=== PATIENT | female | born 1960 | race African-American/Black ===

== ENCOUNTER 2016-10-31 17:53 | Emergency (ER) | payer BC ==
[~2016-10-31 17:53] MED LIST: CYCL5TAB PO; OXYC5CAP3 PO
[2016-10-31] MEDS ORDERED: IV NORMAL SALINE 1000ML BAG 1,000 ML IV SCH (18:21)
--- NOTE | 2016-10-31 18:21 | PHYS DOC ---
Past Medical History Past Medical History: Other Additional Past Medical Histor: severe acid reflux Past Surgical History: Cholecystectomy, Hysterectomy, Tonsillectomy, Other Additional Past Surgical Histo: breast reduction, R eye sx, bilat knee sx, bilat foot sx Alcohol Use: None Drug Use: None Adult General Chief Complaint Chief Complaint: FLANK PAIN HPI HPI Patient is a 55 year old female who presents with right abdominal and right flank pain. Patient reports for the past 3 days she has had a aching pain in her right flank, right lower quadrant, periumbilical. She also reports nausea and vomiting, chills. Patient has had episodes like this in the past, however this was different in character. She denies fever. She did not take anything for pain prior to coming to emergency department. Review of Systems Review of Systems Constitutional: Chills Eyes: Denies change in visual acuity or eye pain HENT: Denies nasal congestion or sore throat Respiratory: Denies cough or shortness of breath Cardiovascular: Denies chest pain GI: RLQ/periumbilical pain, nausea, vomiting, constipation. Denies bloody stools or diarrhea : Denies dysuria or hematuria Musculoskeletal: R flank pain Integument: Denies rash or skin lesions Neurologic: Denies headache, focal weakness or sensory changes Current Medications Current Medications Current Medications Medications (Trade) Dose Ordered Sig/Magnus Start Time Stop Time Status Last Admin Dose Admin Ceftriaxone Sodium (Rocephin 1gm Ivpb For Omni) 50 ml @ 100 mls/hr 1X ONCE 10/31/16 21:00 10/31/16 21:29 DC 10/31/16 21:17 100 MLS/HR Info (Do NOT chart on this entry -- for MONITORING) 1 each PRN DAILY PRN 10/31/16 19:00 10/31/16 22:40 DC Iohexol (Omnipaque 300 Mg/ml) 75 ml 1X ONCE 10/31/16 19:00 10/31/16 19:01 DC 10/31/16 21:03 75 ML Morphine Sulfate 4 mg 4 mg 1X ONCE 10/31/16 20:30 10/31/16 20:31 DC 10/31/16 20:36 4 MG Sodium Chloride (Iv Sodium Chloride 0.9% 1000ml Bag) 1,000 ml @ 1,000 mls/hr Q1H 10/31/16 18:21 10/31/16 19:20 DC 10/31/16 18:21 1,000 MLS/HR Allergies Allergies Allergies Coded Allergies Type Severity Reaction Last Updated Verified Sulfa (Sulfonamide Antibiotics) Allergy Intermediate 10/31/16 Yes Tetracyclines Allergy Intermediate 07/13/15 Yes acetaminophen Allergy Intermediate Nausea 10/31/16 Yes hydrocodone Allergy Intermediate Nausea 10/31/16 Yes Physical Exam Physical Exam Constitutional: Well developed, well nourished, no acute distress, non-toxic appearance HENT: Normocephalic, atraumatic, bilateral external ears normal Eyes: EOMI, conjunctiva normal, no discharge Neck: Normal range of motion, no stridor Cardiovascular: Heart rate normal, regular rhythm, no murmur Lungs & Thorax: Bilateral breath sounds clear to auscultation Abdomen: Bowel sounds normal, soft, non-distended, RLQ TTP without guarding or rebound Skin: Warm, dry, no erythema, no rash Back: No CVA tenderness Extremities: No obvious deformity, no edema Neurologic: Alert and oriented X 3, no gross deficits noted Current Patient Data Vital Signs Vital Signs Date Time Temp Pulse Resp B/P Pulse Ox O2 Delivery O2 Flow Rate FiO2 10/31/16 22:35 80 18 118/74 94 Room Air 10/31/16 20:06 98.1 98.1 Lab Values Laboratory Tests Test 10/31/16 20:20 10/31/16 20:25 Urine Collection Type Unknown Urine Color Yellow Urine Clarity Clear Urine pH 6.0 Urine Specific [place] 1.015 Urine Protein Negativemg/dL (NEG-TRACE) Urine Glucose (UA) Negativemg/dL (NEG) Urine Ketones (Stick) 15mg/dL (NEG) Urine Blood Trace (NEG) Urine Nitrite Positive (NEG) Urine Bilirubin Negative (NEG) Urine Urobilinogen Dipstick 0.2mg/dL (0.2 mg/dL) Urine Leukocyte Esterase Large (NEG) Urine RBC Rare/HPF (0-2) Urine WBC 20-40/HPF (0-4) Urine Squamous Epithelial Cells Few/LPF Urine Bacteria Many/HPF (0-FEW) Urine Mucus Slight/LPF White Blood Count 10.4x10^3/uL (4.0-11.0) Red Blood Count 5.17x10^6/uL (3.50-5.40) Hemoglobin 13.0g/dL (12.0-15.5) Hematocrit 39.9% (36.0-47.0) Mean Corpuscular Volume 77fL (79-100) L Mean Corpuscular Hemoglobin 25pg (25-35) Mean Corpuscular Hemoglobin Concent 33g/dL (31-37) Red Cell Distribution Width 15.9% (11.5-14.5) H Platelet Count 292x10^3/uL (140-400) Neutrophils (%) (Auto) 68% (31-73) Lymphocytes (%) (Auto) 24% (24-48) Monocytes (%) (Auto) 6% (0-9) Eosinophils (%) (Auto) 1% (0-3) Basophils (%) (Auto) 1% (0-3) Neutrophils # (Auto) 7.1x10^3uL (1.8-7.7) Lymphocytes # (Auto) 2.5x10^3/uL (1.0-4.8) Monocytes # (Auto) 0.7x10^3/uL (0.0-1.1) Eosinophils # (Auto) 0.1x10^3/uL (0.0-0.7) Basophils # (Auto) 0.1x10^3/uL (0.0-0.2) Sodium Level 143mmol/L (136-145) Potassium Level 3.6mmol/L (3.5-5.1) Chloride Level 107mmol/L (98-107) Carbon Dioxide Level 29mmol/L (21-32) Anion Gap 7 (6-14) Blood Urea Nitrogen 17mg/dL (7-20) Creatinine 0.8mg/dL (0.6-1.0) Estimated GFR (Cockcroft-Gault) 90.8 BUN/Creatinine Ratio 21 (6-20) H Glucose Level 90mg/dL (70-99) Calcium Level 8.9mg/dL (8.5-10.1) Total Bilirubin 0.5mg/dL (0.2-1.0) Aspartate Amino Transferase (AST) 16U/L (15-37) Alanine Aminotransferase (ALT) 24U/L (14-59) Alkaline Phosphatase 72U/L (46-116) Total Protein 7.1g/dL (6.4-8.2) Albumin 3.7g/dL (3.4-5.0) Albumin/Globulin Ratio 1.1 (1.0-1.7) Lipase 186U/L (73-393) Laboratory Tests 10/31/16 20:25 Laboratory Tests 10/31/16 20:25 EKG EKG [] Radiology/Procedures Radiology/Procedures CT A/P: Impression: Essentially unremarkable CT of the abdomen pelvis apart from mildly prominent fluid-filled small bowel loops, perhaps on the basis of gastroenteritis. The study is otherwise unremarkable. Course & Med Decision Making Course & Med Decision Making Pertinent Labs and Imaging studies reviewed. (See chart for details) Patient is 55-year-old female who presents with right lower quadrant/right flank pain. Differential includes appendicitis, kidney stone. Will obtain labs, UA, CT abdomen/pelvis. IV fluids ordered, pain medication ordered for patient comfort (after she had initially declined pain meds). Imaging results as above. Blood work unremarkable. UA indicative of UTI, suspect this is source of symptoms. Dose of Rocephin ordered. Discussed results with patient, who is feeling better at this time. Discharged home with prescription for antibiotics, instructions for follow-up, return precautions. Dragon Disclaimer Dragon Disclaimer This electronic medical record was generated, in whole or in part, using a voice recognition dictation system. Departure Departure Impression: Primary Impression: Urinary tract infection Disposition: 01 HOME, SELF-CARE Condition: STABLE Referrals: DALE MATTHEWS (PCP) Patient Instructions: Urinary Tract Infection Additional Instructions: Thank you for allowing us to provide care today in the Emergency Department. Take the provided medication as directed. Use caution when taking the pain medication as it can make you drowsy. Schedule a follow up appointment with your primary care doctor. Return promptly to the Emergency Department if you develop any new or concerning symptoms. Scripts Oxycodone Hcl 5 Mg Tablet5 Mg PO Q8HRS PRN PAIN #15 TAB Ref 0 Prov:NOAH CARRANZA MD 10/31/16 Cefpodoxime Proxetil 200 Mg Tablet1 Tab PO BID #20 TAB Prov:NOAH CARRANZA MD 10/31/16 Ondansetron (Zofran Odt)4 Mg Tab.rapdis1 Tab SL Q8HRS PRN NAUSEA #15 TAB Prov:NOAH CARRANZA MD 10/31/16 NOAH CARRANZA MD Oct 31, 2016 18:21
[2016-10-31] MEDS ORDERED: IOHEXOL 300 MG/ML 75 ML VIAL IV ONE (19:00)
[2016-10-31] MEDS ORDERED: CONTRAST GIVEN MC PRN (19:00)
[2016-10-31 20:25] LABS: BILIRUBIN,URINE NEGATIVE (NEG); GLUCOSE,URINE NEGATIVE (NEG); NITRITE,URINE POSITIVE (NEG); PROTEIN,URINE NEGATIVE (NEG-TRACE); UROBILINOGEN,URINE 0.2 mg/dL (0.2 mg/dL)
[2016-10-31] MEDS ORDERED: MORPHINE SULFATE 4 MG/ML DISP.SYRIN. IV ONE (20:30)
[2016-10-31 20:34] LABS: BASO # 0.1 x10^3/uL (0.0-0.2); BASO % 1 % (0-3); EOS % 1 % (0-3); HEMATOCRIT 39.9 % (36.0-47.0); LYMPH # 2.5 x10^3/uL (1.0-4.8); LYMPH % 24 % (24-48); MEAN CORPUSCULAR HEMOGLOBIN 25 pg (25-35); MEAN CORPUSCULAR HGB CONC 33 g/dL (31-37); MEAN CORPUSCULAR VOLUME 77 fL (79-100); MONO % 6 % (0-9); NEUT % 68 % (31-73); PLATELET COUNT 292 x10^3/uL (140-400); RED BLOOD COUNT 5.17 x10^6/uL (3.50-5.40); RED CELL DISTRIBUTION WIDTH 15.9 % (11.5-14.5); WHITE BLOOD COUNT 10.4 x10^3/uL (4.0-11.0)
[2016-10-31 20:35] LABS: BACTERIA,URINE MANY /HPF (0-FEW); RBC,URINE RARE /HPF (0-2); WBC,URINE 20-40 /HPF (0-4)
[2016-10-31 20:36] LABS: SQUAMOUS EPITHELIAL CELL,UR FEW /LPF
[2016-10-31 20:46] LABS: CALCIUM 8.9 mg/dL (8.5-10.1); CREATININE 0.8 mg/dL (0.6-1.0); GFR 90.8; POTASSIUM 3.6 mmol/L (3.5-5.1)
[2016-10-31 20:52] LABS: ALBUMIN 3.7 g/dL (3.4-5.0); ALBUMIN/GLOBULIN RATIO 1.1 (1.0-1.7); TOTAL BILIRUBIN 0.5 mg/dL (0.2-1.0); TOTAL PROTEIN 7.1 g/dL (6.4-8.2)
[2016-10-31] MEDS ORDERED: CEFTRIAXONE 1GM IVPB FOR OMNI 50 ML IV ONE (21:00)
--- NOTE | 2016-10-31 21:32 | RAD ---
CT abdomen pelvis with contrast Indication: Severe right lower quadrant pain for 3 days and vomiting. Axial imaging through the abdomen and pelvis was performed after the administration of intravenous contrast. Comparison is made with prior CT from 03/18/2016. The lung bases are clear. The liver is unremarkable. The gallbladder is surgically absent. The pancreas and spleen are unremarkable. No adrenal mass is identified. The right kidney contains a low-density mass in the lower pole, most suggestive of a cyst. The left kidney is unremarkable. The aorta is non aneurysmal. No ascites is identified. The appendix is unremarkable. There are some nonspecific mildly prominent small-bowel loops within the abdomen which are fluid-filled. Nonspecific enteritis cannot be excluded. Bladder is unremarkable. Impression: Essentially unremarkable CT of the abdomen pelvis apart from mildly prominent fluid-filled small bowel loops, perhaps on the basis of gastroenteritis. The study is otherwise unremarkable. Electronically signed by: David Schreiber MD (Oct 31, 2016 21:30:21)
[2016-10-31] MEDS ORDERED: ONDA4TAB10 SL (21:58)
[2016-10-31] MEDS ORDERED: CIPR500T94 PO (21:58)
[2016-10-31] MEDS ORDERED: HYDR-971 PO (21:58)
[2016-10-31] MEDS ORDERED: OXYC5TAB PO (22:19)
[2016-10-31] MEDS ORDERED: CEFP200T PO (22:19)
[2016-10-31 22:35] VITALS: BP 118/74
== END 2016-10-31 22:35 | disposition home or self-care (01) ==
LOC: ER 17:53
DX: N39.0 Urinary tract infection, site not specified (principal); Z88.1 Allergy status to other antibiotic agents; Z88.5 Allergy status to narcotic agent; Z88.2 Allergy status to sulfonamides; Z88.8 Allergy status to other drugs, medicaments and biological substances; Z90.710 Acquired absence of both cervix and uterus; Z90.49 Acquired absence of other specified parts of digestive tract
CPT/HCPCS: 36415; 74177; 80053; 81001; 83690; 85027; 87086; 96361; 96365; 96375; 99285; J0690; J2270; J7030; Q9967

== ENCOUNTER 2017-01-13 13:24 | Emergency (ER) | payer BC, OTHER ==
[~2017-01-13] VITALS: Ht 157.5 cm; Wt 99.8 kg
[~2017-01-13 13:24] MED LIST changes: +CEFP200T PO; +CIPR500T94 PO; +HYDR-971 PO; +ONDA4TAB10 SL; +OXYC5TAB PO
[2017-01-13 13:50] VITALS: BP 144/73
--- NOTE | 2017-01-13 14:07 | PHYS DOC ---
Past Medical History Past Medical History: Other Additional Past Medical Histor: severe acid reflux, R eye blind Past Surgical History: Cholecystectomy, Hysterectomy, Tonsillectomy, Tubal ligation, Other Additional Past Surgical Histo: R eye sx, bilat knee sx, bilat foot sx, rectocele Alcohol Use: None Drug Use: None Adult General Chief Complaint Chief Complaint: HIP PAIN [facility] HPI Patient is a 56 year old female presents emergency Department today with complaint of right shoulder, right ribs and right hip pain secondary to a slip and fall at work 2 days ago. Patient denies striking her head or loss of consciousness. Patient states that she was feeling fine yesterday and then cut her today and was hurting. Patient denies any previous right shoulder fractures , right rib fractures or hip fracture. She denies any history of bone forming disorders or inflammatory arthritide's. Review of Systems Review of Systems Constitutional: Denies fever or chills [] Eyes: Denies change in visual acuity, redness, or eye pain [] HENT: Denies nasal congestion or sore throat [] Respiratory: Denies cough or shortness of breath [] Cardiovascular: No additional information not addressed in HPI [] GI: Denies abdominal pain, nausea, vomiting, bloody stools or diarrhea [] : Denies dysuria or hematuria [] Musculoskeletal: Denies back pain or joint pain [] Integument: Denies rash or skin lesions [] Neurologic: Denies headache, focal weakness or sensory changes [] Endocrine: Denies polyuria or polydipsia [] Allergies Allergies Allergies Coded Allergies Type Severity Reaction Last Updated Verified Sulfa (Sulfonamide Antibiotics) Allergy Intermediate 10/31/16 Yes Tetracyclines Allergy Intermediate 07/13/15 Yes acetaminophen Allergy Intermediate Nausea 10/31/16 Yes hydrocodone Allergy Intermediate Nausea 10/31/16 Yes Physical Exam Physical Exam Constitutional: Well developed, well nourished, no acute distress, non-toxic appearance. Patient ambulated into the emergency department with an antalgic gait. HENT: Normocephalic, atraumatic, bilateral external ears normal, oropharynx moist, no oral exudates, nose normal. [] Eyes: PERRLA, EOMI, conjunctiva normal, no discharge. [] Neck: Normal range of motion, no tenderness, supple, no stridor. [] Cardiovascular:Heart rate regular rhythm, no murmur [] Lungs & Thorax: Chest is without evidence of injury. There is tenderness to palpation to the lateral aspect of the right chest wall. No palpable defect, deformity, instability or crepitus. Patient demonstrates full chest excursion with inspiration. Abdomen: Bowel sounds normal, soft, no tenderness, no masses, no pulsatile masses. [] Skin: Warm, dry, no erythema, no rash. [] Back: No tenderness, no CVA tenderness. [] Extremities: Right shoulder is normal in appearance. Patient is able to perform full active range of motion. However, patient complains of extreme tenderness to palpation answers shoulder is palpated. There is no palpable defects, deformity, instability or crepitus. Right upper arm is normal in appearance as well as right elbow. Right upper extremity is neurovascularly intact with capillary refill less than 2 seconds. Right hip is without any evidence of injury. There is tenderness to palpation to the posterior lateral aspect of right hip without palpable defect, deformity, instability or crepitus. Neurologic: Alert and oriented X 3, normal motor function, normal sensory function, no focal deficits noted. [] Psychologic: Affect normal, judgement normal, mood normal. [] Current Patient Data Vital Signs Vital Signs Date Time Temp Pulse Resp B/P Pulse Ox O2 Delivery O2 Flow Rate FiO2 01/13/17 13:50 98.2 89 18 99 Room Air 98.2 EKG EKG [] Radiology/Procedures Radiology/Procedures 3 views of patient's right shoulder, 2 views of patient's right hip with AP pelvis and 3 views of patient's right ribs with PA chest were performed with adequate technique. There is no evidence of acute bony injury to the patient's shoulder or hip. There is no evidence of pneumothorax, pulmonary contusion or rib fractures. Course & Med Decision Making Course & Med Decision Making Pertinent Labs and Imaging studies reviewed. (See chart for details) [] Dragon Disclaimer Dragon Disclaimer This electronic medical record was generated, in whole or in part, using a voice recognition dictation system. Departure Departure Impression: Primary Impression: Multiple contusions Disposition: 01 HOME, SELF-CARE Condition: GOOD Referrals: DALE MATTHEWS (PCP) Patient Instructions: Chest Contusion, [id number] Additional Instructions: 1. The x-rays of your right shoulder, ribs and right hip here today are normal. This means is no evidence of broken bones or dislocations. 2. Take ibuprofen every 8 hours or naproxen every 12 hours for the discomfort. 3. Review the discharge instructions provided for self-care and reasons to return the emergency department. 4. Contact your primary care doctor's office Sunday morning to schedule follow- up appointment. WES ROY Jan 13, 2017 14:06
--- NOTE | 2017-01-13 17:00 | RAD ---
Pelvis with right hip, two views, 01/13/2017: HISTORY Fall, pain No fracture or dislocation is identified. The hip joint is well preserved. IMPRESSION No acute bony abnormality is detected. Electronically signed by: Chicho Navarro MD (Jan 13, 2017 16:59:11)
--- NOTE | 2017-01-13 17:02 | RAD ---
Right shoulder, three views, 01/13/2017: HISTORY Fall, pain No fracture or dislocation is identified. The soft tissues are unremarkable. IMPRESSION No significant right shoulder abnormality is detected. Electronically signed by: Chicho Navarro MD (Jan 13, 2017 17:00:42)
--- NOTE | 2017-01-13 17:09 | RAD ---
Right ribs with chest, three views, 01/13/2017: History-fall, pain No fracture or rib abnormality is detected. There is no evidence of underlying pneumothorax, hemothorax or pulmonary infiltrate. IMPRESSION No acute right rib abnormality is detected. Electronically signed by: Chicho Navarro MD (Jan 13, 2017 17:08:39)
== END 2017-01-13 15:16 | disposition home or self-care (01) ==
LOC: ER 13:24
DX: S70.01XA Contusion of right hip, initial encounter (principal); Z88.2 Allergy status to sulfonamides; Z88.1 Allergy status to other antibiotic agents; Z88.5 Allergy status to narcotic agent; Z88.6 Allergy status to analgesic agent; W01.0XXA Fall on same level from slipping, tripping and stumbling without subsequent striking against object, initial encounter; Y93.89 Activity, other specified; Y92.89 Other specified places as the place of occurrence of the external cause; Y99.8 Other external cause status
CPT/HCPCS: 71101; 73030; 73502; 99284

== ENCOUNTER 2019-07-26 20:08 | Emergency (ER) | payer BC, OTHER ==
[~2019-07-26] VITALS: Ht 165.1 cm; Wt 108.9 kg
[~2019-07-26 20:08] MED LIST changes: +HYDR-3164 PO; -HYDR-971 PO; +OXYC5CAP PO; -OXYC5CAP3 PO; -OXYC5TAB PO; +OXYC5TAB4 PO
[2019-07-26 20:21] VITALS: BP 158/68
[2019-07-26] MEDS ORDERED: DEXAMETHASONE 4 MG TABLET ONE (21:06)
[2019-07-26] MEDS ORDERED: IPRATRPIUM/ALBUTEROL 0.5/2.5MG 3 ML NEBU. NEB ONE (21:30)
[2019-07-26] MEDS ORDERED: DEXAMETHASONE 4 MG TABLET PO ONE (21:30)
[2019-07-26] MEDS ORDERED: PRED20TA PO (21:41)
[2019-07-26] MEDS ORDERED: AZIT250T PO (21:41)
--- NOTE | 2019-07-26 21:41 | PHYS DOC ---
Past Medical History Additional Past Medical Histor: severe acid reflux, R eye blind Past Surgical History: Cholecystectomy, Hysterectomy, Tonsillectomy Additional Past Surgical Histo: eye surgery, left knee surgery, foot surgery Smoking: Quit Greater Than 1 Year (quit 36 years ago) Additional Information: Nonsmoker Alcohol Use: None Drug Use: None Adult General Chief Complaint Chief Complaint: SHORTNESS OF BREATH HPI HPI Ms. Norman is a 58yo AAF w/ no PMH significant presents tonight with 1 week of progressive shortness of breath and upper respiratory discomfort. Symptoms began on Sunday with a dry, scratchy sore throat and has progressed to include sinus pressure/tenderness, nasal congestion w/o rhinorrhea, headache (8.5/10, does not want pain medication), watery eye discharge, productive cough that is white to yellow and fluffy, "exhausted," and myalgias. She feels her chest rattle with wheezing. States that her grand-daughter and daughter are both sick. Has not received a flu shot this year. Was seen by her family physician on and was prescribed an inhaler to use, which has not helped. Flonase and NyQuil have not helped. Reports that she was on a Z-pack 3 weeks ago which did not help. Review of Systems Review of Systems Constitutional: Reports fever. Denies chills. Eyes: Reports right eye pain and b/l watery discharge. Denies redness or itchiness. HENT: Reports nasal congestion and sore throat. Respiratory: Reports productive cough and shortness of breath. Cardiovascular: Denies chest pain or palpitations GI: Denies abdominal pain, nausea, vomiting, or hematochezia. : Denies dysuria or hematuria Musculoskeletal: Reports back pain secondary to coughing spells. Denies joint pain. Integument: Denies rash or skin lesions Neurologic: Reports headache. Denies focal weakness or sensory changes. Complete systems were reviewed and found to be within normal limits, except as documented in this note. Current Medications Current Medications Current Medications Medications (Trade) Dose Ordered Sig/Magnus Start Time Stop Time Status Last Admin Dose Admin Albuterol/ Ipratropium (Duoneb) 3 ml 1X ONCE 07/26/19 21:30 07/26/19 21:31 DC 07/26/19 21:27 3 ML Dexamethasone (Decadron) 4 mg STK-MED ONCE 07/26/19 21:06 07/26/19 21:06 DC Levofloxacin (Levaquin) 750 mg 1X ONCE 07/26/19 22:30 07/26/19 22:11 DC 07/26/19 22:00 750 MG Allergies Allergies Allergies Coded Allergies Type Severity Reaction Last Updated Verified Sulfa (Sulfonamide Antibiotics) Allergy Intermediate 10/31/16 Yes Tetracyclines Allergy Intermediate 07/13/15 Yes acetaminophen Allergy Intermediate Nausea 10/31/16 Yes hydrocodone Allergy Intermediate Nausea 10/31/16 Yes Physical Exam Physical Exam Constitutional: Well developed, well nourished, mild acute distress, non-toxic appearance HENT: Normocephalic, atraumatic, oropharynx moist w/ mild erythema, b/l tympanic membranes intact and clear w/o exudate Eyes: Conjunctiva normal, no discharge Neck: Normal range of motion, no tenderness, supple, no cervical lymphadenopathy Cardiovascular: heart is regular rate and rhythm w/o gallops, rubs, or murmurs. Lungs & Thorax: Mild wheezing b/l w/o rales or rhonchi. Abdomen: Soft, non-tenderness, non-distended Skin: Warm, dry, no erythema, no rash Extremities: No tenderness, ROM intact, no edema Neurologic: Alert and oriented X 3, no focal deficits noted Psychologic: Affect normal, judgement normal Current Patient Data Vital Signs Vital Signs Date Time Temp Pulse Resp B/P (MAP) Pulse Ox O2 Delivery O2 Flow Rate FiO2 07/26/19 21:25 96 Room Air 07/26/19 20:21 100.2 94 16 158/68 (98) 100.2 EKG EKG EKG obtained @ 2017 and read @ 2020. Negative for ST-elevation changes.[] Radiology/Procedures Radiology/Procedures PROCEDURE: CHEST PA & LATERAL EXAM: CHEST 2 VIEWS. HISTORY: Cough. COMPARISON: 01/13/2017. FINDINGS: Frontal and lateral views of the chest are obtained. There are no confluent infiltrates. There is no pneumothorax or pleural effusion. The heart is not enlarged. Cholecystectomy clips are noted. IMPRESSION: 1. No confluent infiltrates. Electronically signed by: Rhianna David MD (07/26/2019 9:46 PM) [facility] Course & Med Decision Making Course & Med Decision Making Ms. Norman presented with shortness of breath that was improved with Duoneb treatment. EKG negative for ST-elevation changes. CXR without acute process. Symptoms more likely secondary to bronchitis. Patient was prescribed empiric Levaquin and symptomatic Prednisone. Patient stable for discharge with outpatient follow-up with PCP. Discussed findings and plan with patient, who acknowledges understanding and agreement. Dragon Disclaimer Dragon Disclaimer This electronic medical record was generated, in whole or in part, using a voice recognition dictation system. Departure Departure Impression: Primary Impression: Acute bronchitis Disposition: 01 HOME, SELF-CARE Condition: IMPROVED Referrals: DALE MATTHESW (PCP) Patient Instructions: Acute Bronchitis, [id number] Scripts Levofloxacin (LEVAQUIN) 750 Mg Tablet 1 TAB PO DAILY for 7 Days, #7 TAB 0 Refills Prov: NICHOLAS HAQUE DO 07/26/19 Prednisone (PREDNISONE) 20 Mg Tablet 2 TAB PO DAILY, #8 TAB Start this medication tomorrow, Sunday, 07/27. Prov: NICHOLAS HAQUE DO 07/26/19 Problem Qualifiers Primary Impression: Acute bronchitis Bronchitis organism: unspecified organism Qualified Codes: J20.9 - Acute bronchitis, unspecified NICHOLAS HAQUE DO Jul 26, 2019 21:41
--- NOTE | 2019-07-26 21:49 | RAD ---
EXAM: CHEST 2 VIEWS. HISTORY: Cough. COMPARISON: 01/13/2017. FINDINGS: Frontal and lateral views of the chest are obtained. There are no confluent infiltrates. There is no pneumothorax or pleural effusion. The heart is not enlarged. Cholecystectomy clips are noted. IMPRESSION: 1. No confluent infiltrates. Electronically signed by: Rhianna David MD (07/26/2019 9:46 PM) [facility]
[2019-07-26] MEDS ORDERED: LEVO750T31 PO (21:53)
--- NOTE | 2019-07-27 13:47 | EKG ---
[facility] [address] [place] [address] Test Date: 2019-07-26 Test Time: 20:17:13 Pat Name: MUSA HIGGINBOTHAM Department: Room: Gender: F [employer]: : [id number] Requested By: NICHOLAS HAQUE Order Number: [id number] Reading MD: Kurtis Velásquez MD Measurements Intervals [place] Rate: 99 P: 46 TN: 142 QRS: 79 QRSD: 84 T: 42 QT: 322 QTc: 418 Interpretive Statements SINUS RHYTHM Electronically Signed On 08-11-2019 9:07:11 WRINKLE CHASER by Kurtis Velásquez MD
== END 2019-07-26 21:50 | disposition home or self-care (01) ==
LOC: ER 20:08
DX: J20.9 Acute bronchitis, unspecified (principal); K21.9 Gastro-esophageal reflux disease without esophagitis; Z87.891 Personal history of nicotine dependence; Z88.1 Allergy status to other antibiotic agents; Z88.2 Allergy status to sulfonamides; Z88.5 Allergy status to narcotic agent; Z88.6 Allergy status to analgesic agent
CPT/HCPCS: 71046; 93005; 94640; 99284; J7620; J8540

== ENCOUNTER 2020-04-05 12:19 | Emergency (ER) | payer BC ==
[~2020-04-05] VITALS: Ht 157.5 cm; Wt 102.0 kg
[~2020-04-05 12:19] MED LIST changes: +AZIT250T PO; +LEVO750T31 PO; +PRED20TA PO
--- NOTE | 2020-04-05 14:38 | RAD ---
CT brain without contrast. HISTORY: Slurred speech for [address] scan of brain was done without contrast. Sinuses are clear. A skull fracture is not identified. There is no intracranial hemorrhage or subdural hematoma. Ventricles are normal in size. There is no mass or shift of the midline. An acute CVA is not identified. IMPRESSION: 1. No intracranial hemorrhage or acute finding noted. PQRS Compliance Statement: One or more of the following individualized dose reduction techniques were utilized for this examination: 1. Automated exposure control 2. Adjustment of the mA and/or kV according to patient size 3. Use of iterative reconstruction technique Electronically signed by: Shamar Ruth MD (04/05/2020 2:34 PM) [facility]
[2020-04-05 14:44] LABS: BASO % 0 % (0-3); EOS # 0.1 x10^3/uL (0.0-0.7); EOS % 2 % (0-3); HEMATOCRIT 41.2 % (36.0-47.0); HEMOGLOBIN 13.4 g/dL (12.0-15.5); LYMPH # 2.3 x10^3/uL (1.0-4.8); LYMPH % 25 % (24-48); MEAN CORPUSCULAR HEMOGLOBIN 25 pg (25-35); MEAN CORPUSCULAR HGB CONC 32 g/dL (31-37); MEAN CORPUSCULAR VOLUME 79 fL (79-100); MONO # 0.8 x10^3/uL (0.0-1.1); MONO % 8 % (0-9); NEUT # 6.1 x10^3/uL (1.8-7.7); NEUT % 65 % (31-73); PLATELET COUNT 332 x10^3/uL (140-400); RED BLOOD COUNT 5.25 x10^6/uL (3.50-5.40); RED CELL DISTRIBUTION WIDTH 16.1 % (11.5-14.5); WHITE BLOOD COUNT 9.3 x10^3/uL (4.0-11.0)
[2020-04-05 14:52] LABS: CALCIUM 8.5 mg/dL (8.5-10.1); CREATININE 0.9 mg/dL (0.6-1.0); GFR 78.1; POTASSIUM 4.2 mmol/L (3.5-5.1)
[2020-04-05 14:54] LABS: PROTHROMBIN TIME PATIENT 12.3 SEC (11.7-14.0)
[2020-04-05 14:57] LABS: ALBUMIN 3.7 g/dL (3.4-5.0); ALBUMIN/GLOBULIN RATIO 1.1 (1.0-1.7); MAGNESIUM 2.2 mg/dL (1.8-2.4); TOTAL BILIRUBIN 0.2 mg/dL (0.2-1.0)
--- NOTE | 2020-04-05 15:29 | PHYS DOC ---
Past Medical History Past Medical History: No Pertinent History, GERD Additional Past Medical Histor: severe acid reflux, R eye blind (GAEL LAWTON DO) Past Surgical History: Cholecystectomy, Hysterectomy, Tonsillectomy Additional Past Surgical Histo: eye surgery, left knee surgery, foot surgery (GAEL LAWTON DO) Smoking Status: Former Smoker Alcohol Use: None Drug Use: None (GAEL LAWTON DO) General Adult EDM: Chief Complaint: SLURRED SPEECH HPI: HPI: Patient is a 59 year old female who was sent here by his family physician due to slow speech and stuttering that happened over the weekend, last 3 days. Patient also complained of mild headache, denies any fever, no neck pain, no cough, no chest pain, no sore throat, no abdominal pain, no nausea vomiting. Patient denies any numbness or weakness anywhere. Patient denies any head injury. sHe is not on any blood thinner. (GAEL LAWTON DO) Review of Systems: Review of Systems: Constitutional: Denies fever or chills. [] Eyes: Denies change in visual acuity. [] HENT: Denies nasal congestion or sore throat. [] Respiratory: Denies cough or shortness of breath. [] Cardiovascular: Denies chest pain or edema. [] GI: Denies abdominal pain, nausea, vomiting, bloody stools or diarrhea. [] : Denies dysuria. [] Musculoskeletal: Denies back pain or joint pain. [] Integument: Denies rash. [] Neurologic: Positive for headache, stuttering, slurred speech, no focal weakness or numbness. Endocrine: Denies polyuria or polydipsia. [] Lymphatic: Denies swollen glands. [] Psychiatric: Denies depression or anxiety. [] (GAEL LAWTON DO) Heart Score: Risk Factors: Risk Factors: DM, Current or recent (<one month) smoker, HTN, HLP, family history of CAD, obesity. Risk Scores: Score 0 - 3: 2.5% MACE over next 6 weeks - Discharge Home Score 4 - 6: 20.3% MACE over next 6 weeks - Admit for Clinical Observation Score 7 - 10: 72.7% MACE over next 6 weeks - Early Invasive Strategies (GAEL LAWTON DO) Allergies: Allergies: Allergies Coded Allergies Type Severity Reaction Last Updated Verified Sulfa (Sulfonamide Antibiotics) Allergy Intermediate 1/31/17 Yes Tetracyclines Allergy Intermediate 07/13/15 Yes acetaminophen Allergy Intermediate Nausea 10/31/16 Yes hydrocodone Allergy Intermediate Nausea 10/31/16 Yes (GAEL LAWTON DO) Physical Exam: PE: Constitutional: Well developed, well nourished, no acute distress, non-toxic appearance. [] HENT: Normocephalic, atraumatic, bilateral external ears normal, oropharynx moist, no oral exudates, nose normal. [] Eyes: PERRLA, EOMI, conjunctiva normal, no discharge. [] Neck: Normal range of motion, no tenderness, supple, no stridor. [] Cardiovascular:Heart rate regular rhythm, no murmur [] Lungs & Thorax: Bilateral breath sounds clear to auscultation [] Abdomen: Bowel sounds normal, soft, no tenderness, no masses, no pulsatile masses. [] Skin: Warm, dry, no erythema, no rash. [] Back: No tenderness, no CVA tenderness. [] Extremities: No tenderness, no cyanosis, no clubbing, ROM intact, no edema. [] Neurologic: Alert and oriented X 3, normal motor function, normal sensory function, no focal deficits noted. Patient had stuttering when she spoke. Psychologic: Affect normal, judgement normal, mood normal. [] Otherwise she had no focal neurological deficit anywhere. (GAEL LAWTON DO) Current Patient Data: Labs: Laboratory Tests Test 04/05/20 14:13 White Blood Count 9.3 x10^3/uL (4.0-11.0) Red Blood Count 5.25 x10^6/uL (3.50-5.40) Hemoglobin 13.4 g/dL (12.0-15.5) Hematocrit 41.2 % (36.0-47.0) Mean Corpuscular Volume 79 fL (79-100) Mean Corpuscular Hemoglobin 25 pg (25-35) Mean Corpuscular Hemoglobin Concent 32 g/dL (31-37) Red Cell Distribution Width 16.1 % (11.5-14.5) H Platelet Count 332 x10^3/uL (140-400) Neutrophils (%) (Auto) 65 % (31-73) Lymphocytes (%) (Auto) 25 % (24-48) Monocytes (%) (Auto) 8 % (0-9) Eosinophils (%) (Auto) 2 % (0-3) Basophils (%) (Auto) 0 % (0-3) Neutrophils # (Auto) 6.1 x10^3/uL (1.8-7.7) Lymphocytes # (Auto) 2.3 x10^3/uL (1.0-4.8) Monocytes # (Auto) 0.8 x10^3/uL (0.0-1.1) Eosinophils # (Auto) 0.1 x10^3/uL (0.0-0.7) Basophils # (Auto) 0.0 x10^3/uL (0.0-0.2) Prothrombin Time 12.3 SEC (11.7-14.0) Prothrombin Time INR 1.0 (0.8-1.1) Activated Partial Thromboplast Time 28 SEC (24-38) Sodium Level 142 mmol/L (136-145) Potassium Level 4.2 mmol/L (3.5-5.1) Chloride Level 107 mmol/L (98-107) Carbon Dioxide Level 25 mmol/L (21-32) Anion Gap 10 (6-14) Blood Urea Nitrogen 15 mg/dL (7-20) Creatinine 0.9 mg/dL (0.6-1.0) Estimated GFR (Cockcroft-Gault) 78.1 BUN/Creatinine Ratio 17 (6-20) Glucose Level 84 mg/dL (70-99) Calcium Level 8.5 mg/dL (8.5-10.1) Magnesium Level 2.2 mg/dL (1.8-2.4) Total Bilirubin 0.2 mg/dL (0.2-1.0) Aspartate Amino Transferase (AST) 16 U/L (15-37) Alanine Aminotransferase (ALT) 37 U/L (14-59) Alkaline Phosphatase 90 U/L (46-116) Troponin I Quantitative < 0.017 ng/mL (0.000-0.055) Total Protein 7.0 g/dL (6.4-8.2) Albumin 3.7 g/dL (3.4-5.0) Albumin/Globulin Ratio 1.1 (1.0-1.7) Laboratory Tests 04/05/20 14:13 Laboratory Tests 04/05/20 14:13 Vital Signs: Vital Signs Date Time Temp Pulse Resp B/P (MAP) Pulse Ox O2 Delivery O2 Flow Rate FiO2 04/05/20 13:44 98.3 85 12 181/96 (124) 98 Room Air 98.3 (GAEL LAWTON DO) EKG: EKG: EKG was done at 1403, heart rate of 81 bpm, normal sinus rhythm, no ST segment elevation. [] (GAEL LAWTON DO) Radiology/Procedures: Radiology/Procedures: [][facility] [address] [place] [address] IMAGING REPORT Signed PATIENT: MUSA HIGGINBOTHAM ACCOUNT: [id number] : 1960 LOCATION: ER AGE: 59 SEX: F EXAM STATUS: REG ER ORD. PHYSICIAN: GAEL LAWTON DO REASON: slurred speech for 3 days PROCEDURE: CT HEAD WO CONTRAST CT brain without contrast. HISTORY: Slurred speech for [address] scan of brain was done without contrast. Sinuses are clear. A skull fracture is not identified. There is no intracranial hemorrhage or subdural hematoma. Ventricles are normal in size. There is no mass or shift of the midline. An acute CVA is not identified. IMPRESSION: 1. No intracranial hemorrhage or acute finding noted. RS Compliance Statement: One or more of the following individualized dose reduction techniques were utilized for this examination: 1. Automated exposure control 2. Adjustment of the mA and/or kV according to patient size 3. Use of iterative reconstruction technique Electronically signed by: Shamar Ruth MD (04/05/2020 2:34 PM) [facility] DICTATED and SIGNED BY: SHAMAR RUTH MD DATE: 04/05/20 1439 (GAEL LAWTON DO) Course & Med Decision Making: Course & Med Decision Making Pertinent Labs and Imaging studies reviewed. (See chart for details) Patient is a 59-year-old female with new onset stuttering, may be associated with headache or anxiety or psychological problem, needed to be admitted to hospital for further evaluation and treatment. Discussed with Dr. Cruz who agreed to admit the patient. (GAEL LAWTON DO) Course & Med Decision Making Dr. Cruz came to talk to me about this patient. Dr. Lawton had wanted this patient to be admitted. Dr. Cruz states that after talking to her patient is not warranted inpatient admission. Patient also does not want to be admitted secondary to the coronavirus pandemic. Dr. Cruz has recommended outpatient MRI prescription. He states that patient's daughters when she has anxiety. When patient comes down patient has normal speech. Patient is comfortable with this plan and does not want to be admitted. Discussed results and plan of care with patient. Patient is instructed to follow up with PCP in one to 2 days. Appropriate discharge instructions given to patient to return to the ED or to seek immediate medical evaluation. Patient is instructed to return to the ED if symptoms worsen or if any concerns. (NATIVIDAD SIDDIQI DO) Dragon Disclaimer: Dragon Disclaimer: This electronic medical record was generated, in whole or in part, using a voice recognition dictation system. (GAEL LAWTON DO) Departure Departure Impression: Primary Impression: Slurred speech Additional Impressions: Stutter Anxiety Disposition: 01 HOME, SELF-CARE Admitting Physician: ZEB (DR. CRUZ) (GAEL LAWTON DO) Condition: STABLE Referrals: DALE MATTHEWS (PCP) Patient Instructions: Anxiety and Panic Attacks Additional Instructions: Discussed results and plan of care with patient. Patient is instructed to follow up with PCP in one to 2 days. Appropriate discharge instructions given to patient to return to the ED or to seek immediate medical evaluation. Patient is instructed to return to the ED if symptoms worsen or if any concerns. Please call the MRI for an outpatient test. Justicifation of Admission Dx: Justifications for Admission: Justification of Admission Dx: N/A (GAEL LAWTON DO) Justification of Admission Dx: No (NATIVIDAD SIDDIQI DO) GAEL LAWTON DO Apr 05, 2020 15:29 NATIVIDAD SIDDIQI DO Apr 05, 2020 18:31
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
[2020-04-05 16:35] VITALS: BP 174/76
[2020-04-05 16:59] LABS: BILIRUBIN,URINE NEGATIVE (NEG); CLARITY,URINE CLEAR; COLOR,URINE YELLOW; NITRITE,URINE NEGATIVE (NEG); PROTEIN,URINE NEGATIVE (NEG-TRACE); UROBILINOGEN,URINE 0.2 mg/dL (0.2 mg/dL)
[2020-04-05] MEDS ORDERED: IBUPROFEN 400 MG TABLET. PO ONE (17:00)
[2020-04-05 17:03] LABS: BACTERIA,URINE 0 /HPF (0-FEW); RBC,URINE 0 /HPF (0-2); WBC,URINE 0 /HPF (0-4)
[2020-04-05 17:04] LABS: SQUAMOUS EPITHELIAL CELL,UR MOD /LPF
--- NOTE | 2020-04-06 08:43 | EKG ---
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
== END 2020-04-05 18:50 | disposition home or self-care (01) ==
LOC: ER 12:19 → 6 SOUTH 16:37 → UNDOADMIN 16:37 → UNDODISIN 17:00
DX: R47.81 Slurred speech (principal); F41.0 Panic disorder [episodic paroxysmal anxiety]; H54.61 Unqualified visual loss, right eye, normal vision left eye; E66.01 Morbid (severe) obesity due to excess calories; F43.20 Adjustment disorder, unspecified; K21.9 Gastro-esophageal reflux disease without esophagitis; Z88.8 Allergy status to other drugs, medicaments and biological substances; Z82.49 Family history of ischemic heart disease and other diseases of the circulatory system; Z68.41 Body mass index [BMI] 40.0-44.9, adult; Z87.891 Personal history of nicotine dependence; Z79.899 Other long term (current) drug therapy; Z90.710 Acquired absence of both cervix and uterus; Z90.89 Acquired absence of other organs; Z90.49 Acquired absence of other specified parts of digestive tract
CPT/HCPCS: 36415; 70450; 80053; 81001; 83735; 84484; 85025; 85610; 85730; 93005; 96365; 96367; 96375; 99285; G0378